=== PATIENT | female | born 1955 | race Hispanic/Latino ===

== ENCOUNTER 2022-02-26 11:52 | Outpatient (CLI) | payer MEDICARE ==
[2022-02-26 12:55] LABS: Hematocrit 43.5 % (30.3-42.9); Hemoglobin 14.4 gm/dl (10.1-14.3); Mean Corpuscular HGB Conc 33 % (30-34); Mean Corpuscular Volume 92 fl (79-97); Platelet Count 288 K/mm3 (140-440); Red Blood Count 4.74 M/mm3 (3.65-5.03); Red Cell Distribution Width 12.8 % (13.2-15.2)
[2022-02-26 13:17] LABS: Erythrocyte Sedimentation Rate 2 mm/Hr (0-20)
[2022-02-26 13:18] LABS: Alanine Aminotransferase 33 units/L (7-56); Albumin 4.6 g/dL (3.9-5); Blood Urea Nitrogen 18 mg/dL (7-17); Calcium 9.4 mg/dL (8.4-10.2); Hemolysis Index 30
[2022-02-26 13:42] LABS: BUN/Creatinine Ratio 30
[2022-03-02 15:45] LABS: Vitamin D, 25-OH, D2 19 ng/mL
[2022-03-04 06:16] LABS: ANA Screen, IFA Negative (Negative)
== END 2022-02-26 11:53 | disposition home or self-care (01) ==
LOC: LAB 11:52
PROVIDERS: ATTEND Specialist
DX: G61.9 Inflammatory polyneuropathy, unspecified (principal); E07.9 Disorder of thyroid, unspecified; R73.03 Prediabetes
CPT/HCPCS: 36415; 80053; 82306; 82607; 83036; 83921; 84443; 85027; 85652; 86038; 86225; 86334; 86431; 86592